=== PATIENT | female | born 1960 | race Caucasian/White ===

== ENCOUNTER 2016-10-18 15:33 | Emergency (ER) | payer OTHER ==
[~2016-10-18 15:33] MED LIST: ASPIR 8181 MG PO; CARDIZEM SR 90M90 MG PO; LOPRESSOR 50 MG50 MG PO; TOPAMAX100 MG PO; ULTRAM50 MG PO; VENTOLIN HFA 66.7 GM INH; XARELTO15 MG PO; XARELTO20 MG PO
[2016-10-18 17:00] LABS: HEMOGLOBIN 13.1 gm/dl (12.3-15.3); RED BLOOD COUNT 4.71 M/UL (4.00-5.10)
[2016-11-01] MEDS ORDERED: LOPRESSOR50 MG PO (07:48)
[2016-11-01] MEDS ORDERED: MULTAQ400 MG PO (07:49)
== END 2016-10-18 21:19 | disposition home or self-care (01) ==
LOC: ER1 15:33
PROVIDERS: Physician Assistant
DX: R07.9 Chest pain, unspecified (principal); R06.02 Shortness of breath; R11.0 Nausea; R61 Generalized hyperhidrosis; I48.91 Unspecified atrial fibrillation; I10 Essential (primary) hypertension; G40.909 Epilepsy, unspecified, not intractable, without status epilepticus; Z86.711 Personal history of pulmonary embolism; Z79.01 Long term (current) use of anticoagulants; Z79.899 Other long term (current) drug therapy
CPT/HCPCS: 36415; 71010; 80053; 82550; 82553; 83874; 84484; 85025; 93005; 96374; 96375; 99285; J2270; J2405

== ENCOUNTER → 2016-11-01 | Outpatient (CLI) | payer OTHER ==
[~2016-11-01] MED LIST changes: +LOPRESSOR50 MG PO; +MULTAQ400 MG PO
[2016-11-01 07:55] LABS: RED BLOOD COUNT 4.34 M/UL (4.00-5.10); WHITE BLOOD COUNT 6.1 K/UL (4.5-11.0)
== END ==
LOC: OPSV2 10-18 07:00
PROVIDERS: Internal Medicine Interventional Cardiology
DX: I48.0 Paroxysmal atrial fibrillation (principal); I26.99 Other pulmonary embolism without acute cor pulmonale; I27.2 Other secondary pulmonary hypertension; I10 Essential (primary) hypertension; Z79.82 Long term (current) use of aspirin; Z79.02 Long term (current) use of antithrombotics/antiplatelets; Z79.899 Other long term (current) drug therapy; Z79.891 Long term (current) use of opiate analgesic
CPT/HCPCS: 36415; 80048; 85025; 92960; 93005; J2250; J3010

== ENCOUNTER 2021-05-17 16:26 | Inpatient (IN) | payer MEDICARE, OTHER ==
[~2021-05-17] VITALS: Ht 177.8 cm; Wt 95.3 kg
[~2021-05-17 16:26] MED LIST changes: +ALPRAZOLAM0.5 MG PO; +AMIODARONE HCL100 MG PO; +AMIODARONE HCL400 MG PO; +ASPIR-LOW81 MG PO; +BUMEX 1MG TABLET1 MG PO; +CATAPRES 0.1MG0.1 MG PO; +COLACE 100MG C100 MG PO; +DIGOXIN125 MCG PO; +DILTIAZEM 24HR240 M1 PO; +ELIQUIS 5 MG TAB5 MG PO; +ELIQUIS5 MG PO; +HYDRALAZINE HCL50 MG PO; +KEFLEX CAP 500500 MG PO; +LASIX 40 MG TAB40 MG PO; +LASIX40 MG PO; +LIPITOR TAB 2020 MG PO; +LOPRESSOR100 MG PO; +MEDROL4 MG PO; +NORCO 10-325 T1 EACH PO; +PROVENTIL HFA6.7 GM INH; +TEGRETOL 200 M200 MG PO; +TOPAMAX 100 MG100 MG PO; +TRANDATE 200 M200 MG PO; +ZESTRIL20 MG PO; +ZOFRAN4 MG PO
[2021-05-17] MEDS ORDERED: DILT-XR180 MG PO (17:58)
[2021-05-17] MEDS ORDERED: ISOSORBIDE MONO30 MG PO (17:59)
--- NOTE | 2021-05-17 22:07 | NUR ---
CALLED DR YUEN OF [facility]. ORDERS FOR CARDIOLOGY CONSULT IN AM.
--- NOTE | 2021-05-18 01:16 | NUR ---
PATIENTS HR SUSTAINING IN THE 70S. BP 114/80 CLARIFIED CARDIZEM DRIP AND BOLUS WITH DR FARIAS. ORDERS TO HOLD UNTIL HR IS GREATER THAN 100.
[2021-05-18 03:05] LABS: HEMOGLOBIN 12.7 gm/dl (12.3-15.3); RED BLOOD COUNT 4.15 M/UL (4.00-5.10); WHITE BLOOD COUNT 5.5 K/UL (4.5-11.0)
--- NOTE | 2021-05-18 05:34 | NUR ---
NOTIFIED DR FARIAS THAT PATIENT DID NOT HAVE REPEAT CARDIACS ORDERED. NO ORDERS RECIEVED AT THIS TIME.
--- NOTE | 2021-05-18 19:58 | NUR ---
UPON ENTERING ROOM PTS IV NOTED TO BE BLEEDING AND APPEARS TO HAVE COME OUT. REMOVED AND PLACED BANDAGE ON SITE. STARTED NEW LINE IN RIGHT AC. PT COMPLAINING OF CHEST HEAVINESS AND PAIN. NOTIFIED MD. VITALS FOLLOWS BP 116/72 HR 85 RR18 02 99 ROOM AIR.
--- NOTE | 2021-05-18 20:48 | NUR ---
GAVE PT NITRO +3 TABS EVERY 5 MIN PER ORDER. PTS INITIAL CHEST PAIN WAS A 6 AND IS NOW DOWN TO A 4. NOTIFIED DR STARR. SEE VITALS CHARTED.
--- NOTE | 2021-05-19 00:46 | NUR ---
PT CALLED OUT TO SAY SHE WAS IN PAIN. UPON ENTERING THE ROOM SHE IS ASLEEP. WHEN AWAKENED SHE REPORTS THAT HER PAIN IS 8/10 IN LEGS. OFFERED TYLENOL BUT PT REFUSED STATES, " I CANT TAKE TYLENOL IT HURTS MY STOMACH!". CAN I HAVE THE OTHER ONE? MED GIVEN REQUESTED.
[2021-05-19] MEDS ORDERED: ISOSORBIDE MONO60 MG PO (13:00)
[2021-05-21 03:32] LABS: HEMOGLOBIN 11.9 gm/dl (12.3-15.3); RED BLOOD COUNT 3.89 M/UL (4.00-5.10); WHITE BLOOD COUNT 4.6 K/UL (4.5-11.0)
[2021-05-25] MEDS ORDERED: CARVEDILOL25 MG PO (14:17)
[2021-05-25] MEDS ORDERED: PERCOCET 5/325 T1 EA PO (14:19)
[2021-05-25] MEDS ORDERED: BUMETANIDE1 MG PO (14:23)
== END 2021-05-25 16:23 | disposition home or self-care (01) | DRG 286 ==
LOC: PROG CARE 16:26
PROVIDERS: Internal Medicine; Internal Medicine Cardiovascular Disease; Internal Medicine Interventional Cardiology; ADMIT Internal Medicine
PROC: 3E02340 Introduction of Influenza Vaccine into Muscle, Percutaneous Approach (ICD-10-PCS; 2021-05-17)
PROC: B24BZZZ Ultrasonography of Heart with Aorta (ICD-10-PCS; principal; 2021-05-19)
PROC: 4A023N7 Measurement of Cardiac Sampling and Pressure, Left Heart, Percutaneous Approach (ICD-10-PCS; 2021-05-21)
PROC: B2111ZZ Fluoroscopy of Multiple Coronary Arteries using Low Osmolar Contrast (ICD-10-PCS; 2021-05-21)
DX: I48.0 Paroxysmal atrial fibrillation (principal); I50.21 Acute systolic (congestive) heart failure; I13.0 Hypertensive heart and chronic kidney disease with heart failure and stage 1 through stage 4 chronic kidney disease, or unspecified chronic kidney disease; Z20.822 Contact with and (suspected) exposure to COVID-19; I16.0 Hypertensive urgency; I07.1 Rheumatic tricuspid insufficiency; N18.30 Chronic kidney disease, stage 3 unspecified; G40.909 Epilepsy, unspecified, not intractable, without status epilepticus; E78.5 Hyperlipidemia, unspecified; I42.8 Other cardiomyopathies; F41.9 Anxiety disorder, unspecified; Z79.01 Long term (current) use of anticoagulants; Z86.711 Personal history of pulmonary embolism; Z88.0 Allergy status to penicillin; Z88.8 Allergy status to other drugs, medicaments and biological substances; Z86.16 Personal history of COVID-19; Z82.49 Family history of ischemic heart disease and other diseases of the circulatory system; Z86.718 Personal history of other venous thrombosis and embolism; Z23 Encounter for immunization
CPT/HCPCS: ECHO; 36415; 36430; 71045; 78452; 80048; 82550; 82553; 83880; 84484; 85025; 85027; 85379; 90686; 93005; 93306; 93971; 94640; 94760; 94761; 99152; 99153; A9502; C1769; C1887; C1894; G0008; G0378; G0379; J1940; J2785; J7040

== ENCOUNTER 2021-05-30 20:40 | Emergency (ER) | payer MEDICARE ==
[~2021-05-30 20:40] MED LIST changes: +BUMETANIDE1 MG PO; +CARVEDILOL25 MG PO; +DILT-XR180 MG PO; +ISOSORBIDE MONO30 MG PO; +ISOSORBIDE MONO60 MG PO; +PERCOCET 5/325 T1 EA PO
[2021-05-30 21:24] LABS: HEMOGLOBIN 14.6 gm/dl (12.3-15.3); RED BLOOD COUNT 4.72 M/UL (4.00-5.10); WHITE BLOOD COUNT 8.5 K/UL (4.5-11.0)
[2021-05-30] MEDS ORDERED: CARDIZEM CD180 MG PO (23:39)
== END 2021-05-30 23:51 | disposition home or self-care (01) ==
LOC: ER1 20:40
PROVIDERS: Emergency Medicine
DX: T82.897A Other specified complication of cardiac prosthetic devices, implants and grafts, initial encounter (principal); I48.91 Unspecified atrial fibrillation; I11.0 Hypertensive heart disease with heart failure; I50.9 Heart failure, unspecified; X58.XXXA Exposure to other specified factors, initial encounter
CPT/HCPCS: 71045; 80053; 82550; 82553; 83735; 83874; 83880; 84484; 85025; 93005; 99285

== ENCOUNTER → 2021-09-07 | Outpatient (CLI) | payer MEDICARE ==
[~2021-09-07] MED LIST changes: +CARDIZEM CD180 MG PO
== END ==
LOC: HEART 5 07-06 09:30
DX: R07.9 Chest pain, unspecified (principal); R00.2 Palpitations; I10 Essential (primary) hypertension; I08.3 Combined rheumatic disorders of mitral, aortic and tricuspid valves; I27.20 Pulmonary hypertension, unspecified
CPT/HCPCS: 93306

== ENCOUNTER → 2021-11-16 | Outpatient (CLI) | payer MEDICARE ==
[~2021-11-16] MED LIST changes: +COREG25 MG PO; +DILTIAZEM 24HR180 M1 PO
== END ==
LOC: CATH 07:17
DX: I48.0 Paroxysmal atrial fibrillation (principal); Z88.0 Allergy status to penicillin; Z88.8 Allergy status to other drugs, medicaments and biological substances; Z79.01 Long term (current) use of anticoagulants; Z79.899 Other long term (current) drug therapy; Z20.822 Contact with and (suspected) exposure to COVID-19
CPT/HCPCS: 92960; 93005; 93312; 93320; J0461; J1200; J1742; J2250; J2310; J3010; J7050